=== PATIENT | female | born 1960 ===

== ENCOUNTER → 2017-03-21 | Outpatient (REF) ==
[2017-03-21 19:11] LABS: THYROID STIMULATING HORMONE 0.051 uIU/mL (0.465-4.680)
== END ==
LOC: ZLAB.WCH 18:00
PROVIDERS: Nurse Practitioner Family
DX: Z01.89 Encounter for other specified special examinations (principal)

== ENCOUNTER → 2017-06-28 | Outpatient (REF) | LOC: ZLAB.WCH 19:01 | DX: Z01.89 Encounter for other specified special examinations (principal) ==

== ENCOUNTER → 2018-09-19 | Outpatient (REF) | LOC: ZLAB.WCH 16:50 | DX: Z01.89 Encounter for other specified special examinations (principal) ==